=== PATIENT | male | born 1950 | race Caucasian/White ===

== ENCOUNTER → 2025-03-02 15:07 | Outpatient (CLI) | payer MEDICARE, SELFPAY | PROVIDERS: PCP Family Medicine; Visit Provider Urology | DX: N40.1 Benign prostatic hyperplasia with lower urinary tract symptoms (principal); R33.9 Retention of urine, unspecified | CPT/HCPCS: 51798; 81002; 87077; 87086; 87186; 99213 ==

== ENCOUNTER → 2025-03-11 15:44 | Outpatient (CLI) | payer MEDICARE, SELFPAY | PROVIDERS: PCP Family Medicine; Referring Provider Urology; Visit Provider Urology | DX: R97.20 Elevated prostate specific antigen [PSA] (principal) | CPT/HCPCS: 36415; 84153 ==

== ENCOUNTER 2025-04-13 10:24 | Inpatient (IN) | payer MEDICARE, SELFPAY ==
[2025-04-02 10:39] VITALS: BMI 23.5
[2025-04-13] VITALS (12 sets, daily range): BP systolic 110–169; BP diastolic 57–85; PULSE 53–83; RESP 12–21; TEMP 36.1–36.6; O2SAT 93–100; BMI 23.5
--- NOTE | 2025-04-13 | PATH_ITS ---
[facility] Accession Number: [id number] No. of containers..02 Tissue . 01 Material submitted: . PART A: prostate - PROSTATE PART B: small bowel - SMALL BOWEL . 01 Diagnosis: A. PROSTATE, EXCISION: Consistent with adenosis (adenoma) with features of benign prostatic hyperplasia. No evidence of malignancy. . B. SMALL BOWEL, SEGMENTAL RESECTION: Segment of small bowel with gross perforation. Negative for dysplasia or malignancy. [facility] 04/20/2025 1120 Local . 01 Electronically signed: . Amilcar Fuentes MD, PhD, Pathologist NPI- [id number] . 01 Gross description: . A. Received in formalin with two identifiers and prostate, are two unoriented irregular elizabeth soft tissue fragments. The first (117 grams, 7.5 x 6.0 x 5.1 cm) is inked blue while the second (4 grams, 2.6 x 1.4 x 1.4 cm) is inked green. Sectioning reveals a elizabeth, rubbery, diffusely nodular cut surface. No distinct lesion are identified. Flume Tender sections are submitted in cassettes A1-A3. B. Received in formalin with two identifiers and small bowel, is an unoriented segment of bowel 8.2 cm in length by 2.3 cm in diameter with adipose extending out to 4.1 cm. The serosa is elizabeth and smooth with an area of black sutures consistent with defect measuring 0.4 cm in greatest dimension. On the opposite side of the specimen within the fat is a line of black sutures measuring 2.9 cm in greatest dimension consistent with second defect. The remaining serosa is smooth and unremarkable. One staple line is inked blue, the opposite staple line is inked black, the serosal sutured area is inked orange while the adipose sutured area is inked green. The lumen contains a small amount of green mucoid material. Both defects are full thickness. The mucosa is elizabeth and velvety with normal appearing folds and no lesions identified. The juan average 0.3 cm thick. Palpation reveals one elizabeth lymph node candidate 0.3 cm in greatest dimension. Flume Tender sections are submitted as follows: B1: Flume Tender margins en face. B2: [place] area of defect. B3: Green area of defect. B4: Normal full thickness sections. B5: Single intact lymph node candidate. B6: Adipose with possible additional lymph node candidates. ([id number]) /[facility] 04/14/2025 0926 Local . 01 Pathologist provided ICD-10: N40.1, S36.898A . 01 CPT . 899031, [id number] Specimen Comment: A courtesy copy of this report has been sent to [facility] Performed at: [address] [address], [place], [place] [id number] MD Eugene Mosley MD Phone: [phone]
[2025-04-13] MEDS: ACETAMINOPHEN 325 MG TABLET 975 MG PO ×2 (07:05→21:15)
[2025-04-13] MEDS: LACTATED RINGERS 1,000 ML 42 ML IV ×2 (07:05→09:11)
[2025-04-13] MEDS: GABAPENTIN 300 MG CAPSULE PO (07:06)
[2025-04-13] MEDS: CELECOXIB 200 MG CAPSULE PO (07:11)
--- NOTE | 2025-04-13 07:17 | PM.PREOP ---
Pre-operative Note COVID-19 COVID-19 status: Not tested Interval Note History & Physical reviewed/Exam performed by Physician: Yes Changes to H&P: Yes H&P completed within 30 days and has changed as indicated here:: Unfortunately, he went back into urinary retention last week and had another bravo catheter placed. Otherwise, no changes to history or physical.
[2025-04-13] MEDS: CEFAZOLIN 2 GM/100 ML PREMIX 100 ML IV (07:45)
[2025-04-13] MEDS: CEFAZOLIN VIAL 1 GM in SODIUM CHLORIDE 0.9% 100 ML IV (07:55)
--- NOTE | 2025-04-13 08:34 | SUR.OPER ---
Supine on padded OR bed with pink pads, head on pillow, arms padded and tucked at sides, legs uncrossed, safety belt at thigh, tape over blanket over lower legs, facial protector in place per anesthesia. Dr. Amaya in room during positioning to ensure proper positioning and patient safety.
--- NOTE | 2025-04-13 08:36 | SUR.OPER ---
Noticed peripheral right forearm IV infiltrated, IV discontinued, and new 20 guage placed in Right AC prior to positioning patient for procedure.
[2025-04-13] MEDS: BUPIVACAINE 0.25% W/ EPI 30 ML VIAL INJ (09:12)
[2025-04-13] MEDS: PIPERACILLIN/TAZO 3.375 GM in SODIUM CHLORIDE 0.9% 100 ML IV ×2 (10:02→18:18)
--- NOTE | 2025-04-13 13:30 | P.OP_ITS ---
Operative Date/Time/Diagnoses Date of procedure: 04/13/25 Time of procedure: 13:30 Pre-op diagnosis: Small bowel injury Post-op diagnosis: same Procedure & Clinicians Procedure: Small bowel resection Same procedure(s) as scheduled: No Surgeon: Americo Suarez Anesthesia Type: General Operative Notes Findings: Full-thickness small-bowel trocar injury with minimal contamination Applied: none Estimated Blood Loss (mL): 20 Procedure in detail: I was called in emergently during a robotic prostatectomy due to a concern for a small bowel injury. I sat down at the console and examined the injury. There was a small anti mesenteric defect leaking some succus and some air bubbles. I explored the segment of small bowel and found a larger injury on the mesenteric side. I e xplored the hole in the mesentery and it appeared to traverse towards the bowel wall suggesting a through injury. I closed the mesenteric and anti mesenteric defects with multiple interrupted 3-0 silk sutures using the robot. I suctioned a small amount of succus that had spilled from the enterotomies. Dr. Amaya then completed the urological portion of the procedure. Once he had completed the prostatectomy and closed the bladder I returned to the console and suctioned some more fluid from the area. It did not appear that any more sulcus had leaked out from the small bowel injury. I then had laparoscopic grasper brought in through one of the right-sided ports to hold on to one of the sutures I had placed earlier during the closure of the enterotomies. We then undocked the robot and extended the supraumbilical incision to about 5 cm. The prostate specimen was removed. I placed a small Jet wound retractor and exteriorized the injured segment of bowel. I then performed a small-bowel resection by resecting about 10 cm of the injured small bowel. And then created a [id number] functional end to end anastomosis using the 75 mm linear cutting stapler with blue loads to transect the bowel, create the common channel and closed the enterotomies. I oversewed the closure of the enterotomies with multiple interrupted 3-0 silk seromuscular sutures. There was no significant mesenteric defect to close. The anastomosis felt widely patent. The anastomosis was then returned to the abdomen and the incisions were closed in the usual manner. EBL for the GI portion of the operation was about 15 mL Specimen: Small bowel Complications: none Post-operative Condition: stable Disposition: PACU
[2025-04-13] MEDS: LACTATED RINGERS 1,000 ML 125 ML IV (15:08)
[2025-04-13] MEDS: OXYBUTYNIN 5 MG TABLET PO ×2 (15:11→21:14)
--- NOTE | 2025-04-13 16:29 | PM.OP.1 ---
Operative Date/Time/Diagnoses Date of procedure: 04/13/25 Time of procedure: 08:00 Pre-op diagnosis: Benign prostatic hyperplasia with lower urinary tract symptoms Post-op diagnosis: other (Benign prostatic hyperplasia with lower urinary tract symptoms, small bowel injury) Procedure & Clinicians Procedure: Robotic assisted simple prostatectomy Same procedure(s) as scheduled: Yes Indications: 74 y/o M w/ BPH and LUTS who had failed medical therapy and was catheter dependent who elected for surgical management via a robotic assisted simple prostatectomy. Surgeon: Pk Amaya Click Yes if Unassisted: Yes Anesthesia Type: General Operative Notes Findings: Full-thickness small bowel trocar injury with minimal contamination Large prostate adenoma Closure Type: primary Specimen(s): other (prostate adenoma) Applied: catheter Estimated Blood Loss (mL): 150 Blood products transfused: none Procedure in detail: After administration of general anesthetic, this patient was placed in an extended dorsal lithotomy position. The lower abdomen and genitalia were shaved, prepped, and draped in a sterile fashion. A 16 fr Bravo catheter was then passed per urethra in to the bladder and secured in the proper location by inflating the Bravo balloon. A small curvilinear incision was made immediately superior to the umbilicus, we then grasped the skin edges to elevate the abdominal wall and we established a pneumoperitoneum with a Veress needle. An 8 mm trocar was then placed. The abdomen was then inspected and a full-thickness small bowel trocar injury with minimal contaminations was appreciated. Under direct vision, we placed 2 additional trocars on both sides; the far-left lateral port being a 12 mm port for the learning and development assistant, and the remainder being 8 mm da Wade ports. The ports were then connected to the [employer] surgical system. A Ilan-Ion device was utilized for fascial closure of the aforementioned 12 mm learning and development assistant port. A total of 60 cc's of local anesthetic was utilized throughout the case. At this point, General Surgery was contacted regarding the aforementioned small bowel injury, please see their separate dictation for further details regarding management. The bladder was then identified by distending the bladder via the bravo with 240 cc of sterile water. A vertical midline incision was made in the bladder. Stay sutures were then utilized to keep the bladder open via 0-Vicryl sutures and large weck clips. Bilateral ureteral orifices were easily identified and noted to be orthotopic in nature. The adenoma was easily visualized as a large intravesical median lobe. ?The bladder mucosa was then scored circumferentially around the adenoma and adenoma was excised intact. Hemostasis was obtained within the prostatic fossa via 4-0 Vicryl sutures in a figure of 8 fashion. Hemostasis was evaluated and noted to be excellent. A 24Fr Saray 3-way hematuria catheter was then placed into the bladder and the balloon was inflated under direct vision, a total of 45 cc of sterile water was utilized for balloon insufflation. The cystotomy was then closed in two layers using 3-0 V-lock in a running fashion and tied in the middle. A leak test was then performed with 240 cc of sterile water and noted to be negative. The prostatic adenoma was then placed into the lap sac. The robot was undocked and the midline incision was then extended to allow for extraction of the specimen. The midline fascial incision was then closed transversely using figure-of- eight sutures of 0 Vicryl. All skin incisions were then closed using running 4-0 Monocryl. All five incisions were then covered with Dermabond. The patient was then awakened and taken to the PACU in stable condition for recovery. Complications: other (full-thickness small bowel trocar injury with minimal contamination) Post-operative Condition: stable Disposition: Acute Care Plan for aftercare: Will recover the next few days as he regains bowel function and CBI is slowly titrated down.
--- NOTE | 2025-04-13 19:14 | PC.NURSE ---
Patient continues to have a grade 3 hematuria from 3way bravo and irrigation. is aware and has written a communication order to keep irrigation flowing right where it is at after adjusting. Patient denies pain and is comfortable in his bed. He is resting comfortably. Minimal bleeding around head of penis where bravo is at, penis wrapped with chucks pads. Tolerating LR at 125cc/hr.
--- NOTE | 2025-04-13 20:18 | PC.NURSE ---
Addendum entered by Kira Salazar R.N. 04/13/25 21:37: The pt got up to use the bedside commode, he said he felt like he may have a bm or gas. He said he was unable to do either after sitting for about 15 minutes the pt got back into bed. He is moving well, standby assist. Original Note: RN continues to monitor Peace for continuos bladder irrigation. Now starting bag draining clear pink no clots, will continue with wide open continuous irrigation per provider. Provider added second bag to prevent back flow to bladder, this works well and continues to fill every 15 minutes and 3000ml bag emptied about every 30 minutes. the pt is lying comfortably in bed with no complaints of pain.
[2025-04-13] MEDS: OXYCODONE IR 5 MG TABLET PO (21:18)
[2025-04-13] MEDS: ATORVASTATIN 20 MG TABLET 40 MG PO (22:27)
[2025-04-14] MEDS: PIPERACILLIN/TAZO 3.375 GM in SODIUM CHLORIDE 0.9% 100 ML IV ×3 (00:48→18:09)
[2025-04-14] MEDS: ACETAMINOPHEN 325 MG TABLET 975 MG PO (01:07)
[2025-04-14] MEDS: OXYCODONE IR 5 MG TABLET PO (01:07)
[2025-04-14] MEDS: LACTATED RINGERS 1,000 ML 125 ML IV (02:07)
[2025-04-14 07:09] LABS: Add Manual Diff / Slide Review NO; Basophils Absolute Auto 0 /uL (0-100); Basophils Percent Auto 0.3 % (0-2); Eosinophils Absolute Auto 0 /uL (0-450); Hematocrit 29.1 % (41-53); Hemoglobin 9.9 g/dL (13.5-17.5); Lymphocytes Absolute Auto 1100 /uL (1100-4500); Lymphocytes Percent Auto 11.9 % (25-40); Mean Corpuscular HGB Conc 34.2 % (30-36); Mean Corpuscular Hemoglobin 30.8 PG (26-34); Mean Corpuscular Volume 90.2 fL (80-100); Monocytes Absolute Auto 900 /uL (0-900); Neutrophils Absolute Auto 7300 /uL (1500-7000); Neutrophils Percent Auto 77.8 % (50-75); Platelet Count 216 X10^3/uL (150-400); Red Blood Cell Count 3.23 X10^6/uL (4.5-5.9); Red Cell Distribution Width 13.8 % (11.6-14.8); White Blood Cell Count 9.3 X10^3/uL (4.5-11.0)
[2025-04-14 07:21] LABS: Blood Urea Nitrogen 12 mg/dL (9-20); Calcium 8.3 mg/dL (8.4-10.2); Carbon Dioxide 24 mmol/L (22-32); Chloride 106 mmol/L (98-107); Estimated Glomerular Filt Rate > 60 mL/min (>60); Glucose 106 mg/dL (70-99); HEMOLYSIS < 15 (0-50); Potassium 4.2 mmol/L (3.4-5.1); Sodium 133 mmol/L (137-145)
[2025-04-14 08:00] VITALS: BP 137/67; PULSE 62; RESP 16; TEMP 36.1; O2SAT 97
--- NOTE | 2025-04-14 08:46 | PM.PNPO.1 ---
Subjective Subjective Date Patient Seen: 04/14/25 Time Patient Seen: 08:46 Interval history: 74 y/o M w/ h/o BPH and LUTS who failed medical management and required an indwelling bravo catheter opted for surgical management via a robotic assisted simple prostatectomy. He is currently POD 1 from the aforementioned procedure. Unfortunately, his procedure was complicated by a full-thickness small bowel trocar injury with minimal contamination that was managed intraoperatively by General Surgery via a small bowel resection. He is otherwise recovering as expected. His pain remains well controlled. He is tolerating a clear liquid diet and is hungry. No flatus yet. Has not ambulated yet. Exam Vital Signs (past 8 hours): Oxygen Delivery Method Room Air Oxygen Flow Rate 0 Narrative Exam Narrative: GEN: Alert and oriented X3. No acute distress. Well-nourished. EYES: PERRLA, EOMI. HENT: Moist mucus membranes, no scleral icterus, normal neck ROM. RESP: Unlabored breathing, equal rise and fall of chest bilaterally, no cyanosis appreciated. CV: No peripheral edema, unremarkable heart rate. ABD: Soft, mildly distended, no guarding/rebound/rigidity, incisions well approximated with dermabond. : Bravo secured and draining clear efflux with fast drip of CBI. EXT: No edema, clubbing or cyanosis. SKIN: No rashes or lesions. NEURO: No focal neurologic deficits, CN II-XII grossly intact. PSYCH: Cooperative, appropriate mood and affect. Objective Labs 04/14/25 06:50 04/14/25 06:50 Labs: Laboratory Results - last 24 hr 04/14/25 06:50 WBC 9.3 RBC 3.23 L Hgb 9.9 L Hct 29.1 L MCV 90.2 MCH 30.8 MCHC 34.2 RDW 13.8 Plt Count 216 Neut % (Auto) 77.8 H Lymph % (Auto) 11.9 L [place] % (Auto) 10.0 Eos % (Auto) 0.0 L Baso % (Auto) 0.3 Neut # (Auto) 7300 H Lymph # (Auto) 1100 [place] # (Auto) 900 Eos # (Auto) 0 Baso # (Auto) 0 Sodium 133 L Potassium 4.2 Chloride 106 Carbon Dioxide 24 BUN 12 Creatinine 0.63 L Estimated GFR > 60 BUN/Creatinine Ratio 19.0 Glucose 106 H Calcium 8.3 L PFSH Medical History HLD (hyperlipidemia) Hypertension Gout Surgical History Hx of hernia repair Family History Father Cancer Coronary artery disease Sister Diabetes mellitus Hyperlipidemia Hypertension UTI (urinary tract infection), uncomplicated Brother Hypertension Social History marital status: number of children: 2 household members: spouse Smoking Status: Former smoker Tobacco: How many years used: 16 alcohol intake: current caffeine: Yes Type(s) of exercise: regular exercise frequency: 5-6 times per week duration: 15-30 minutes/day Assessment & Plan Post-op Postoperative Procedures: Procedures Operation Date: 04/13/25 07:45 Actual Procedure Side Surgeon p Robotic Simple Prostatectomy Pk Amaya DO s Open Small Bowel Resection Americo Suarez MD Postoperative status: doing well Postoperative plan narrative: 74 y/o M w/ h/o BPH and LUTS who failed medical management and required an indwelling bravo catheter opted for surgical management via a robotic assisted simple prostatectomy. He is currently POD 1 from the aforementioned procedure. Unfortunately, his procedure was complicated by a full-thickness small bowel trocar injury with minimal contamination that was managed intraoperatively by General Surgery via a small bowel resection. He is otherwise recovering as expected. - CBI was titrated down, will re-evaluate in a few hours - Ambulate TID in the hallways, IS while awake - Continue current pain control regimen - Will d/c Zosyn later today - Diet management per General Surgery team Time Spent With Patient Time with patient: 15-24 minutes
[2025-04-14] MEDS: OXYBUTYNIN 5 MG TABLET PO ×3 (09:03→23:44)
[2025-04-14] MEDS: ATORVASTATIN 20 MG TABLET 40 MG PO (09:03)
--- NOTE | 2025-04-14 12:51 | PC.NURSE ---
Day shift: Ambulated in halls and tolerated well just now.
--- NOTE | 2025-04-14 13:37 | P.PN_ITS ---
Subjective Subjective Date Patient Seen: 04/14/25 Time Patient Seen: 13:37 Interval history: Feeling well today No flatus yet Tolerating liquids Exam Vital Signs (past 8 hours): - 04/14/25 08:00 Temperature 97.0 F L Pulse Rate 62 Respiratory Rate 16 Blood Pressure 137/67 Pulse Oximetry 97 Oxygen Flow Rate 0 Oxygen Delivery Method Room Air Oxygen Flow Rate 0 Narrative Exam Narrative: Abdomen is soft, nontender Objective Labs 04/14/25 06:50 04/14/25 06:50 Labs: Laboratory Results - last 24 hr 04/14/25 06:50 WBC 9.3 RBC 3.23 L Hgb 9.9 L Hct 29.1 L MCV 90.2 MCH 30.8 MCHC 34.2 RDW 13.8 Plt Count 216 Neut % (Auto) 77.8 H Lymph % (Auto) 11.9 L [place] % (Auto) 10.0 Eos % (Auto) 0.0 L Baso % (Auto) 0.3 Neut # (Auto) 7300 H Lymph # (Auto) 1100 [place] # (Auto) 900 Eos # (Auto) 0 Baso # (Auto) 0 Sodium 133 L Potassium 4.2 Chloride 106 Carbon Dioxide 24 BUN 12 Creatinine 0.63 L Estimated GFR > 60 BUN/Creatinine Ratio 19.0 Glucose 106 H Calcium 8.3 L PFSH Medical History HLD (hyperlipidemia) Hypertension Gout Surgical History Hx of hernia repair Family History Father Cancer Coronary artery disease Sister Diabetes mellitus Hyperlipidemia Hypertension UTI (urinary tract infection), uncomplicated Brother Hypertension Social History marital status: number of children: 2 household members: spouse Smoking Status: Former smoker Tobacco: How many years used: 16 alcohol intake: current caffeine: Yes Type(s) of exercise: regular exercise frequency: 5-6 times per week duration: 15-30 minutes/day Assessment & Plan Assessment and plan (1) BPH loc w urin obs/LUTS: Status: Acute Plan Advance to regular diet once passing flatus Time-Based Coding :: [TOTAL MINUTES] spent with patient and on the chart (including review of chart, obtaining history, exam, reviewing outside data, placing orders, documenting exam and treatment plan, and counseling patient) on [DATE]. PROFEE Certified Wellness Program Manager Document charge(s): No
--- NOTE | 2025-04-14 13:44 | PC.NURSE ---
Day shift: Dr Amaya turned down the CBI at approx 1330. Peace output remains a grade II. Will continue to monitor.
--- NOTE | 2025-04-14 14:15 | CM.DANOTE ---
B DCP Assessment Note pt is a 74yo M POD1 prostatectomy with Dr. Amaya. surgical complication of a small bowel injury resulted in general surgery involvement. PCP Lisa [facility] and self pay SHIFT SUPERVISOR reviewed EMR per chart, pt lives indep with spouse in [place]. no DME/drives. pt progressing today as expected. needs to pass gas before can advance diet, currently tolerating clear liquids. was ambulating in halls with nursing. per chart, no identified barriers to safe dc home once medically stable. P: anticipate return home with OP f/u and spouse once bowel fx returns, likely Saturday vs Saturday. CM team will continue to follow closely in case any DCP needs arise ADRIAN Frost Discharge Planning/Care Management CM Discharge Assessment Start: 04/13/25 06:57 Freq: Status: Active Protocol: Document 04/14/25 14:08 SL (Rec: 04/14/25 14:09 SL Desktop) Discharge Planning Assessment Assigned Discharge ADRIAN Grace Switch Operator DPOA/Assigned Lida, spouse Designee Name Contact Information [phone] Advance Directives? No Advance Directives No on File History Provided By Patient Prior Living House Arrangements Household Members spouse Type of Drives own vehicle transporation used prior to admit Independent with ADL Yes 's Is patient alert and Yes oriented? Discharge Plan Home Review Status In Process Please Provide Date 04/14/25 Initial DC Assessment Was Performed Next Review Type Continued Stay Review Document 04/14/25 14:14 SL (Rec: 04/14/25 14:14 SL Desktop) Discharge Planning Assessment Assigned Discharge ADRIAN Grace Switch Operator DPOA/Assigned Lida, spouse Designee Name Contact Information [phone] Advance Directives? No Advance Directives No on File History Provided By Patient Prior Living House Arrangements Household Members spouse Type of Drives own vehicle transporation used prior to admit Independent with ADL Yes 's Is patient alert and Yes oriented? Discharge Plan Home Review Status In Process Please Provide Date 04/14/25 Initial DC Assessment Was Performed Next Review Type Continued Stay Review Pre-Anesthesia Assessment Start: 04/02/25 10:39 Freq: Status: Active Protocol: Document 04/02/25 10:39 LB (Rec: 04/02/25 10:55 LB [id number]) Pre-Anesthesia Assessment PAC Comment 04/02/25 Chart review. Patient Information Chart Review Reviewed Via Diagnostic Results Urinalysis,Other Comment 03/02/25 at . Primary Care Sara Thacker Provider Seen Specialist in Yes Last 12 Months Specialist Seen Emergency,Urologist Primary Language Puerto Rican Preferred Language Puerto Rican Medication Reconciliation Technician Required No Height 170.18 cm Weight 68.039 kg Body Mass Index (BMI 23.5 ) Anesthesia Review No Requested Corn Sheller No alcohol intake current Smoking Status Former smoker Patient is No completely paralyzed or completely immobile Is patient on oxygen No ? Hx Sleep Apnea No Currently Taking a No Beta Anabel Anti-Coagulant Yes: Aspirin 81mg daily - advised to hold 10 prior per Therapy surgeon. Cardiac Testing No Hx Pacemaker/ICD No Bladder Pattern Nocturia Diabetes No Presence of External No or Internal Medical Devices Marital Status Lives With spouse Patient Discharge Return Home Plan Description Emergency Contact Lida Nayak - Name Emergency Contact [phone] Phone Number Advance Directives No on File
[2025-04-14] MEDS: SODIUM CHLORIDE 0.9% FLUSH 10 ML IV (20:07)
[2025-04-14 20:26] VITALS: BP 138/85; PULSE 69; RESP 18; TEMP 37.3; O2SAT 98
--- NOTE | 2025-04-14 21:51 | PC.NURSE ---
Patient is alert and oriented. Breath sounds CTA with RA sat of 98%; on continuous oximetry as ordered. HRR. Denied nausea. BT hypoactive, especially in lower quads, and abdomen is mildly distended; has not yet passed flatus. Indwelling catheter is patent to CBI with urine being a grade 2 without clots. Is able to turn himself in bed. Was up ambulating in moya with walker and SBA earlier today. Wearing bilateral calf SCD's at shift change but now requests they be removed as cannot sleep with them on. Denied any pain. Fall risk score is moderate but patient oriented and knows to call for assist before getting out of bed.
[2025-04-15 03:40] VITALS: TEMP 38.1
[2025-04-15] MEDS: ACETAMINOPHEN 325 MG TABLET 975 MG PO (03:40)
[2025-04-15 03:41] VITALS: BP 124/66; PULSE 58; RESP 16; TEMP 38.1
[2025-04-15 03:47] VITALS: O2SAT 97
[2025-04-15 04:39] VITALS: TEMP 36.7
[2025-04-15 06:20] LABS: Add Manual Diff / Slide Review NO; Basophils Absolute Auto 0 /uL (0-100); Basophils Percent Auto 0.3 % (0-2); Eosinophils Absolute Auto 100 /uL (0-450); Eosinophils Percent Auto 1.4 % (2-4); Hematocrit 27.4 % (41-53); Hemoglobin 9.5 g/dL (13.5-17.5); Lymphocytes Absolute Auto 1500 /uL (1100-4500); Lymphocytes Percent Auto 17.5 % (25-40); Mean Corpuscular HGB Conc 34.6 % (30-36); Mean Corpuscular Volume 89.7 fL (80-100); Monocytes Absolute Auto 700 /uL (0-900); Monocytes Percent Auto 8.3 % (3-14); Neutrophils Absolute Auto 6100 /uL (1500-7000); Neutrophils Percent Auto 72.5 % (50-75); Platelet Count 205 X10^3/uL (150-400); Red Blood Cell Count 3.06 X10^6/uL (4.5-5.9); White Blood Cell Count 8.4 X10^3/uL (4.5-11.0)
[2025-04-15 06:26] LABS: BUN Creatinine Ratio 14.3 (6-22); Blood Urea Nitrogen 8 mg/dL (9-20); Calcium 8.5 mg/dL (8.4-10.2); Carbon Dioxide 27 mmol/L (22-32); Chloride 108 mmol/L (98-107); Estimated Glomerular Filt Rate > 60 mL/min (>60); Glucose 97 mg/dL (70-99); HEMOLYSIS < 15 (0-50); Potassium 3.7 mmol/L (3.4-5.1); Sodium 138 mmol/L (137-145)
--- NOTE | 2025-04-15 07:45 | P.PN_ITS ---
Subjective Subjective Date Patient Seen: 04/15/25 Time Patient Seen: 07:45 Interval history: 74 y/o M w/ h/o BPH and LUTS who failed medical management and required an indwelling bravo catheter opted for surgical management via a robotic assisted simple prostatectomy. He is currently POD 2 from the aforementioned procedure. Unfortunately, his procedure was complicated by a full-thickness small bowel trocar injury with minimal contamination that was managed intraoperatively by General Surgery via a small bowel resection. He is otherwise recovering as expected. His pain remains well controlled. He is tolerating a clear liquid diet and is hungry. No flatus yet. Has ambulated several times in the hallway. Exam Vital Signs (past 8 hours): - 04/15/25 03:40 04/15/25 03:41 04/15/25 03:47 Temperature 100.5 F H 100.5 F H Pulse Rate 58 L Respiratory Rate 16 Blood Pressure 124/66 Pulse Oximetry 97 Oxygen Flow Rate 97 0 04/15/25 04:39 Temperature 98.1 F Pulse Rate Respiratory Rate Blood Pressure Pulse Oximetry Oxygen Flow Rate Oxygen Delivery Method Room Air Oxygen Flow Rate 0 Narrative Exam Narrative: GEN: Alert and oriented X3. No acute distress. Well-nourished. EYES: PERRLA, EOMI. HENT: Moist mucus membranes, no scleral icterus, normal neck ROM. RESP: Unlabored breathing, equal rise and fall of chest bilaterally, no cyanosis appreciated. CV: No peripheral edema, unremarkable heart rate. ABD: Soft, mildly distended, no guarding/rebound/rigidity, incisions well approximated with dermabond. : Bravo secured and draining clear efflux with moderate drip of CBI. EXT: No edema, clubbing or cyanosis. SKIN: No rashes or lesions. NEURO: No focal neurologic deficits, CN II-XII grossly intact. PSYCH: Cooperative, appropriate mood and affect. Objective Labs 04/15/25 06:00 04/15/25 06:00 Labs: Laboratory Results - last 24 hr 04/15/25 06:00 WBC 8.4 RBC 3.06 L Hgb 9.5 L Hct 27.4 L MCV 89.7 MCH 31.0 MCHC 34.6 RDW 14.0 Plt Count 205 Neut % (Auto) 72.5 Lymph % (Auto) 17.5 L [place] % (Auto) 8.3 Eos % (Auto) 1.4 L Baso % (Auto) 0.3 Neut # (Auto) 6100 Lymph # (Auto) 1500 [place] # (Auto) 700 Eos # (Auto) 100 Baso # (Auto) 0 Sodium 138 Potassium 3.7 Chloride 108 H Carbon Dioxide 27 BUN 8 L Creatinine 0.56 L Estimated GFR > 60 BUN/Creatinine Ratio 14.3 Glucose 97 Calcium 8.5 PFSH Medical History HLD (hyperlipidemia) Hypertension Gout Surgical History Hx of hernia repair Family History Father Cancer Coronary artery disease Sister Diabetes mellitus Hyperlipidemia Hypertension UTI (urinary tract infection), uncomplicated Brother Hypertension Social History marital status: number of children: 2 household members: spouse Smoking Status: Former smoker Tobacco: How many years used: 16 alcohol intake: current caffeine: Yes Type(s) of exercise: regular exercise frequency: 5-6 times per week duration: 15-30 minutes/day Assessment & Plan Post-op Postoperative Procedures: Procedures Operation Date: 04/13/25 07:45 Actual Procedure Side Surgeon p Robotic Simple Prostatectomy Pk Amaya DO s Open Small Bowel Resection Americo Suarez MD Postoperative status: doing well Postoperative plan narrative: 74 y/o M w/ h/o BPH and LUTS who failed medical management and required an indwelling bravo catheter opted for surgical management via a robotic assisted simple prostatectomy. He is currently POD 2 from the aforementioned procedure. Unfortunately, his procedure was complicated by a full-thickness small bowel trocar injury with minimal contamination that was managed intraoperatively by General Surgery via a small bowel resection. He is otherwise recovering as expected. - CBI was titrated down, will re-evaluate in a few hours - Ambulate TID in the hallways, IS while awake - Continue current pain control regimen - Diet management per General Surgery team Time Spent With Patient Time with patient: 15-24 minutes
[2025-04-15 08:00] VITALS: BP 122/69; PULSE 78; RESP 20; TEMP 36.4; O2SAT 99
[2025-04-15] MEDS: ATORVASTATIN 20 MG TABLET 40 MG PO (08:07)
[2025-04-15] MEDS: OXYBUTYNIN 5 MG TABLET PO ×3 (08:07→23:39)
[2025-04-15 20:20] VITALS: BP 138/77; PULSE 74; RESP 18; TEMP 37.1; O2SAT 97
[2025-04-15] MEDS: SODIUM CHLORIDE 0.9% FLUSH 10 ML IV (23:39)
[2025-04-16 08:00] VITALS: BP 134/80; PULSE 64; RESP 18; TEMP 36.6; O2SAT 97
[2025-04-16] MEDS: ATORVASTATIN 20 MG TABLET 40 MG PO (08:15)
[2025-04-16] MEDS: OXYBUTYNIN 5 MG TABLET PO (08:15)
[2025-04-16] MEDS: SODIUM CHLORIDE 0.9% FLUSH 10 ML IV (08:15)
--- NOTE | 2025-04-16 09:12 | CM.DPNOTE ---
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 per surgeon, if urine output remains clear and he tolerated his breakfast he will dc today. P: anticipate dc today with spouse support and OP f/u. will continue to follow as needed in case any DCP needs should arise ADRIAN Frost
--- NOTE | 2025-04-16 14:23 | PC.NURSE ---
Discharge summary and instructions reviewed with pt and spouse at bedside. Discussed use of narcotics that were prescribed to control pain, and ways to reduce constipation. Provided pt with teaching about his bravo catheter; demonstrated how to switch between the leg bag and the original bag, demonstrated how to empty the bravo bags and clean them. Pt was able to do a return demonstration. Pt also educated on how to flush bravo with sterile saline if he needs to flush out clots. Reviewed surgeon's notes regarding what to expect after surgery, and discussed s/sx of infection. Pt confirmed his post-op appointment. IV removed. Pt exited via w/c with spouse to private vehicle.
--- NOTE | 2025-05-13 15:57 | P.DS_ITS ---
History of Present Illness History of Present Illness Date Patient Seen: 04/16/25 Time Patient Seen: 15:00 Chief complaint: Postoperative recovery Narrative: 74 y/o M w/ h/o BPH and LUTS who failed medical management and required an indwelling bravo catheter opted for surgical management via a robotic assisted simple prostatectomy. He is currently POD 3 from the aforementioned procedure. Unfortunately, his procedure was complicated by a full-thickness small bowel trocar injury with minimal contamination that was managed intraoperatively by General Surgery via a small bowel resection. He is otherwise recovering as expected. His pain remains well controlled. He is tolerating a regular diet and has begun passing flatus. Has ambulated several times in the hallway. Discharge Providers Provider Date of admission: 04/13/25 10:24 Discharge Date: 04/16/25 Primary care physician: Sara Thacker DO Discharge provider: Pk Amaya DO Exam Vital Signs (past 8 hours): Oxygen Delivery Method Room Air Oxygen Flow Rate 0 Narrative Exam Narrative: GEN: Alert and oriented X3. No acute distress. Well-nourished. EYES: PERRLA, EOMI. HENT: Moist mucus membranes, no scleral icterus, normal neck ROM. RESP: Unlabored breathing, equal rise and fall of chest bilaterally, no cyanosis appreciated. CV: No peripheral edema, unremarkable heart rate. ABD: Soft, mildly distended, no guarding/rebound/rigidity, incisions well approximated with dermabond. : Bravo secured and draining clear efflux with moderate drip of CBI. EXT: No edema, clubbing or cyanosis. SKIN: No rashes or lesions. NEURO: No focal neurologic deficits, CN II-XII grossly intact. PSYCH: Cooperative, appropriate mood and affect. Objective Labs 04/15/25 06:00 04/15/25 06:00 [facility] Medical History HLD (hyperlipidemia) Hypertension Gout Surgical History Hx of hernia repair Family History Father Cancer Coronary artery disease Sister Diabetes mellitus Hyperlipidemia Hypertension UTI (urinary tract infection), uncomplicated Brother Hypertension Social History marital status: number of children: 2 household members: spouse Tobacco: How many years used: 16 alcohol intake: current caffeine: Yes Type(s) of exercise: regular exercise frequency: 5-6 times per week duration: 15-30 minutes/day Discharge Assessment & Plan Assessment and Plan Assessment: 74 y/o M w/ h/o BPH and LUTS who failed medical management and required an indwelling bravo catheter opted for surgical management via a robotic assisted simple prostatectomy. He is currently POD 3 from the aforementioned procedure. Unfortunately, his procedure was complicated by a full-thickness small bowel trocar injury with minimal contamination that was managed intraoperatively by General Surgery via a small bowel resection. He is otherwise recovering as expected and is tolerating a regular diet and passing flatus. Plan of Treatment: Discharge home. Will return to for a cystoscopy on 29 April 2025 and for a postoperative appointment later that afternoon to hopefully remove his bravo catheter. Discharge Plan Discharge Plan Patient Disposition: Home Provider Discharge Comment: You may resume a regular diet upon returning home. You may begin taking showers as soon as you get home. Please allow the soapy water to run over your incisions. Then pat your incisions dry when you get out of the shower. Please refrain from submerging your incisions in standing water for the next 3 weeks (pools, hot tubs, baths, oceans, leaks, etc..). The surgical grade superglue over your incision should slowly flake off on its own over the next 2-3 weeks. Please do not peel it off early, it would be very similar to removing a scab prior to it being ready to come off. You can expect to have burning with urination for the next few days, this is normal and to be expected after your procedure. You may purchase an OTC medication (Phenazopyridine or Azo), a medication that can help with this burning and discomfort. This medication may change the color of your urine orange, however, this will resolve once you stop taking the medication. It is normal to have blood in your urine after the procedure. You may even pass large blood clots for the next several weeks. Expect to have periods of passage of blood clots and red urine which will then resolve after a few days and return to clear yellow urine. This is normal and part of the healing process of your bladder. As long as you are able to completely empty your bladder, it is okay. If you feel that you have to urinate and you are unable to empty your bladder, please go to the closest emergency room or contact our clinic for evaluation. It is important to refrain from heavy lifting (> 10 lbs) for the next six weeks. Please also avoid strenuous activities (running, elliptical machines, hiking, going to the gym). Please ensure that you have soft daily bowel movements for the next few weeks, you may purchase OTC Miralax and titrate the dosage as needed to achieve soft daily bowel movements. If you are discharged home with a bravo catheter, it is normal for the urine to switch between clear and red and even drain some blood clots. Some of the urine may also drain around the catheter, however, as long as the majority of the urine is draining through the catheter that is okay and to be expected. Should the catheter stop draining for an hour or more, please flush your catheter as directed to dislodge any blood clots that may be obstructing the catheter. Of note, you can flush your catheter as many times as necessary in order to get it draining again. Should you not be able to flush it clear, please present to [facility] ER for evaluation after hours, or the Urology clinic during daylight hours. You have an appointment to return to the Urology clinic at 1440 on 29 April [address] results and hopefully have your catheter removed. You will be contacted by the Radiology department to coordinate the time for your CT to be performed earlier that morning. Should you have any questions or concerns after hours, please call the [employer] Electrician for [facility] at [phone]. They can relay any questions or concerns you have to the physician on-call. Discharge orders & Medications Prescriptions: Continued lisinopril 10 mg tablet 10 mg PO DAILY atorvastatin 40 mg tablet 40 mg PO DAILY Discontinued aspirin [Adult Low Dose Aspirin] 81 mg tablet,delayed release (DR/EC) 81 mg PO DAILY Follow up/Referrals: Pk Amaya DO [Physician, Urology] Sara Thacker DO [Primary Care Provider, Family Practice] Diet/Activity/Treatments Diet: Diet as Tolerated Catheter: 3-way Bravo Skin/Wound/Dressing Care Report to your healthcare provider any signs of infection, such as:: chills, fever, night sweats, increased pain and unusual drainage Visit Report/Discharge Packet Instructions: DI for Prescription Opioid Use, DI for Robot-assisted Prostatectomy, [facility]: Wound Care Stand Alone Forms: Patient Portal/API, Stroke Signs & Symptoms Discharge Data Primary Care Provider: Sara Thacker Charge Codes Discharge inpatient/observation: [id number]
== END 2025-04-16 14:39 | disposition home or self-care (01) | DRG 717 ==
LOC: OR 04-14 11:32 → AC 04-14 11:32
PROVIDERS: Surgery; Admitting Provider Urology; PCP Family Medicine; Referring Provider Urology; Visit Provider Urology
PROC: 0VT04ZZ Resection of Prostate, Percutaneous Endoscopic Approach (ICD-10-PCS; CPT 55867; principal; 2025-04-13 07:45)
PROC: 0DQV4ZZ Repair Mesentery, Percutaneous Endoscopic Approach (ICD-10-PCS; CPT 49000; 2025-04-13 07:45)
DX: N40.1 Benign prostatic hyperplasia with lower urinary tract symptoms (principal); K91.71 Accidental puncture and laceration of a digestive system organ or structure during a digestive system procedure; R97.20 Elevated prostate specific antigen [PSA]; I10 Essential (primary) hypertension; R33.8 Other retention of urine; E78.5 Hyperlipidemia, unspecified; R39.12 Poor urinary stream; R35.1 Nocturia; Z87.891 Personal history of nicotine dependence; Z80.42 Family history of malignant neoplasm of prostate
CPT/HCPCS: 36415; 80048; 85025; J0330; J0690; J1885; J2405; J2543; J2704; J3010

== ENCOUNTER → 2025-04-29 08:34 | Outpatient (CLI) | payer MEDICARE, SELFPAY ==
[2025-04-13 15:15] VITALS: BMI 23.5
--- NOTE | 2025-04-29 08:37 | DI.CT.S_ITS ---
PROCEDURE: CT CYSTOGRAM INDICATIONS: 74 y/o M w/ prior bladder injury, eval for contrast extrav TECHNIQUE: Both before and after gravity instillation of 10% Isovue contrast solution into the bladder through a Peace catheter, 5 mm axial images acquired from the bladder dome to the symphysis. 5 mm thick coronal and sagittal reformats were acquired. For radiation dose reduction, the following was used: automated exposure control, adjustment of mA and/or kV according to patient size. COMPARISON: None. FINDINGS: Image quality: Diagnostic. Bladder: A Peace catheter is present in the bladder, and has been used to inject contrast into the bladder in a retrograde fashion. The bladder has a thickened wall with a trabeculated appearance consistent with chronic bladder outlet obstruction. There is what appears to be some intramural air present within the bladder wall which is present along the anterior wall of the bladder. Reference sagittal image 69 of series 5 and coronal image 34 of series 4 and axial image 46 of series 3. No extravasation of contrast outside of the bladder. The Peace catheter balloon is sitting in the resected bed of the prostate from a simple prostatectomy. Distal Ureters: No abnormal distension. PELVIS: Peritoneum and Bowel: Bowel loops demonstrate normal wall thickness and caliber. No free fluid or air. Pelvic Organs: Recent prostatectomy. Extensive sigmoid diverticulosis without CT evidence of acute diverticulitis. Pelvic Nodes: No enlarged lymph nodes. Miscellaneous: There is extensive extra luminal air traveling through both inguinal canals. Reference axial image 70 of series 2 and coronal image 32 of series 4. There is also subcutaneous air tracking along the left anterior lateral subcutaneous fat related to recent laparoscopic surgery. Bones: No aggressive osseous abnormality. IMPRESSION: 1. The findings discussed above are all expected findings post laparoscopic robotic simple prostatectomy. The important finding is the lack of extravasation of contrast from the bladder into the pelvis. The findings of air in different places is expected. 2. Advanced sigmoid diverticulosis without evidence of acute diverticulitis. Comment: Findings were discussed with the referring urologic surgeon at the time of study dictation. Dictated by: Dixon Witt M.D. on 04/29/2025 at 9:45 Approved by: Dixon Witt M.D. on 04/29/2025 at 10:04
== END ==
PROVIDERS: PCP Family Medicine; Referring Provider Urology; Visit Provider Urology
DX: S37.20XA Unspecified injury of bladder, initial encounter (principal); K57.30 Diverticulosis of large intestine without perforation or abscess without bleeding; N40.1 Benign prostatic hyperplasia with lower urinary tract symptoms; R97.20 Elevated prostate specific antigen [PSA]
CPT/HCPCS: 72194; 99213; Q9967

== ENCOUNTER → 2025-10-01 14:54 | Outpatient (CLI) | payer MEDICARE, SELFPAY ==
[2025-04-13 15:15] VITALS: BMI 23.5
[2025-10-01 16:20] LABS: Prostate Specific Antigen 0.800 ng/mL (0.10-4.00)
== END ==
PROVIDERS: PCP Family Medicine; Referring Provider Urology; Visit Provider Urology
DX: R97.20 Elevated prostate specific antigen [PSA] (principal)
CPT/HCPCS: 36415; 84153

== ENCOUNTER → 2025-10-07 08:34 | Outpatient (CLI) | payer MEDICARE, SELFPAY ==
[2025-04-13 15:15] VITALS: BMI 23.5
== END ==
PROVIDERS: PCP Family Medicine; Visit Provider Urology
DX: N40.1 Benign prostatic hyperplasia with lower urinary tract symptoms (principal); R33.9 Retention of urine, unspecified
CPT/HCPCS: 87077; 87086